=== PATIENT | male | born 1935 | race Caucasian/White ===

== ENCOUNTER 2023-01-27 14:53 | Emergency (ER) | payer MEDICARE, BC ==
[2023-01-27] MEDS ORDERED: Acetaminophen/HYDROcodone 325-10 MG Tab PO ONE (14:54)
[2023-01-27] MEDS ORDERED: Iopamidol 612 MG/ML 100 ML Bottle IVPUSH ONE (14:58)
[2023-01-27 15:29] LABS: PTT,PARTIAL THROMBOPLSTIN TIME 28.1 SEC (22.0-34.0)
[2023-01-27 15:34] LABS: ANION GAP 10.2 mEq/L (7-13); CHLORIDE,CL 104 mmol/L (98-107); SODIUM,NA 146 mmol/L (136-145)
[2023-01-27 15:36] LABS: ESTIMATED GFR 55 mL/min (>=60)
[2023-01-27 16:05] LABS: AMPHETAMINES,URINE NEGATIVE (NEGATIVE); BARBITURATES,URINE NEGATIVE (NEGATIVE); BENZODIAZEPINE,URINE NEGATIVE (NEGATIVE); MDMA (ECSTASY), URINE NEGATIVE (NEGATIVE); METHADONE,URINE NEGATIVE (NEGATIVE); METHAMPHETAMINES,URINE NEGATIVE (NEGATIVE); OPIATES,URINE NEGATIVE (NEGATIVE); OXYCODONE,URINE NEGATIVE (NEGATIVE); PHENCYCLIDINE,URINE NEGATIVE (NEGATIVE); TCA,URINE NEGATIVE (NEGATIVE)
[2023-01-27] MEDS ORDERED: Acetaminophen/HYDROcodone 325-10 MG Tab ONE (16:19)
== END 2023-01-27 16:41 | disposition home or self-care (01) ==
LOC: DL.ED 14:53
DX: S22.32XA Fracture of one rib, left side, initial encounter for closed fracture (principal); J90 Pleural effusion, not elsewhere classified; E78.00 Pure hypercholesterolemia, unspecified; I10 Essential (primary) hypertension; E11.9 Type 2 diabetes mellitus without complications; E66.9 Obesity, unspecified; Z68.30 Body mass index [BMI] 30.0-30.9, adult; Z79.84 Long term (current) use of oral hypoglycemic drugs; Z79.899 Other long term (current) drug therapy; W17.89XA Other fall from one level to another, initial encounter; Z79.01 Long term (current) use of anticoagulants
CPT/HCPCS: 36415; 70450; 71260; 72125; 74177; 80053; 80305-QW; 80307; 81003; 82150; 83690; 83880; 84484; 85025; 85610; 85730; 93005; 93010; 94010; 99284; 99285; A9270-GY; Q9967

== ENCOUNTER 2023-09-10 10:30 | Emergency (ER) | payer MEDICARE, BC ==
[2023-09-10 12:36] LABS: BASOPHILS PERCENT AUTO 0.1 % (0.0-1.0); EOSINOPHILS PERCENT AUTO 1.3 % (1.0-3.0); HEMATOCRIT 43.7 % (40.0-54.0); LYMPHOCYTES PERCENT AUTO 33.6 % (20.5-50.1); MEAN CORPUSCULAR HEMOGLOBIN 28.9 pg (27.0-34.0); MEAN CORPUSCULAR VOLUME 90.1 fL (80-100); MONOCYTES PERCENT AUTO 6.8 % (2-8); NEUTROPHILS PERCENT AUTO 58.2 % (42.2-75.2); PLATELET COUNT,PLT 182 10^3/uL (150-450); RED BLOOD CELL COUNT 4.85 10^6/uL (4.6-6.2); WHITE BLOOD CELL COUNT,WBC 7.7 10^3/uL (5.0-10.0)
[2023-09-10 12:57] LABS: B-TYPE NATRIURETIC PEPTIDE,BNP 197 pg/ml (0-100); C-REACTIVE PROTEIN < 0.50 ng/dL (<=0.50)
== END 2023-09-10 13:36 | disposition home or self-care (01) ==
LOC: DL.ED 10:30
DX: M17.12 Unilateral primary osteoarthritis, left knee (principal); R53.1 Weakness; I10 Essential (primary) hypertension; I48.91 Unspecified atrial fibrillation; E78.00 Pure hypercholesterolemia, unspecified; E11.9 Type 2 diabetes mellitus without complications; F17.210 Nicotine dependence, cigarettes, uncomplicated; E66.9 Obesity, unspecified; Z68.33 Body mass index [BMI] 33.0-33.9, adult; Z79.899 Other long term (current) drug therapy; Z79.84 Long term (current) use of oral hypoglycemic drugs; W18.30XA Fall on same level, unspecified, initial encounter
CPT/HCPCS: 36415; 73562-LT; 83605; 83880; 85025; 85651; 86140; 99284

== ENCOUNTER 2024-04-12 15:12 | Emergency (ER) | payer MEDICARE, BC | END 2024-04-12 18:00 | disposition home or self-care (01) | LOC: DL.ED 15:12 | DX: S61.412A Laceration without foreign body of left hand, initial encounter (principal); J02.9 Acute pharyngitis, unspecified; M25.562 Pain in left knee; I10 Essential (primary) hypertension; E78.00 Pure hypercholesterolemia, unspecified; I48.91 Unspecified atrial fibrillation; E11.9 Type 2 diabetes mellitus without complications; Z79.84 Long term (current) use of oral hypoglycemic drugs; Z79.899 Other long term (current) drug therapy; W19.XXXA Unspecified fall, initial encounter; Y93.89 Activity, other specified | CPT/HCPCS: 87081; 87430; 99283 ==

== ENCOUNTER 2024-04-13 17:38 | Inpatient (IN) | payer MEDICARE, BC ==
[2024-04-13] MEDS: Sodium Chloride 0.9% 10 ML Syringe FLUSH PRN (19:08)
[2024-04-13 19:12] LABS: BASOPHILS PERCENT AUTO 0.1 % (0.0-1.0); EOSINOPHILS PERCENT AUTO 0.2 % (1.0-3.0); HEMATOCRIT 45.6 % (40.0-54.0); HEMOGLOBIN 14.9 g/dL (14.0-18.0); LYMPHOCYTES PERCENT AUTO 12.7 % (20.5-50.1); MEAN CORPUSCULAR HEMOGLOBIN 29.4 pg (27.0-34.0); MEAN CORPUSCULAR HGB CONC 32.7 g/dL (33.0-35.0); MEAN CORPUSCULAR VOLUME 89.9 fL (80-100); MONOCYTES PERCENT AUTO 6.5 % (2-8); NEUTROPHILS PERCENT AUTO 80.5 % (42.2-75.2); PLATELET COUNT,PLT 178 10^3/uL (150-450); RED BLOOD CELL COUNT 5.07 10^6/uL (4.6-6.2); WHITE BLOOD CELL COUNT,WBC 19.4 10^3/uL (5.0-10.0)
[2024-04-13 19:33] LABS: ALANINE AMINOTRANSFERASE,ALT 46 U/L (16-63); ALBUMIN 3.5 g/dL (3.4-5.0); ALKALINE PHOSPHATASE 112 U/L (46-116); ANION GAP 13.1 mEq/L (7-13); ASPARTATE AMNIOTRANSFERASE,AST 24 U/L (15-37); BILIRUBIN TOTAL 2.5 mg/dL (0.2-1.0); BLOOD UREA NITROGEN,BUN 24 mg/dL (7-18); BUN/CREATININE RATIO 15.9 (No establ ref range); CALCIUM 9.6 mg/dL (8.5-10.1); CARBON DIOXIDE,CO2 30 mmol/L (21-32); CHLORIDE,CL 102 mmol/L (98-107); CREATININE 1.51 mg/dL (0.70-1.30); GLUCOSE RANDOM 207 mg/dL (70-99); MAGNESIUM 1.7 mg/dL (1.8-2.4); POTASSIUM,K 4.1 mmol/L (3.5-5.1); SODIUM,NA 141 mmol/L (136-145)
[2024-04-13 19:35] LABS: B-TYPE NATRIURETIC PEPTIDE,BNP 406 pg/ml (0-100)
[2024-04-13 19:37] LABS: ESTIMATED GFR 44 mL/min (>=60)
[2024-04-13 19:38] LABS: INR 1.2 (0.9-1.2); PROTHROMBIN TIME 12.3 SEC (9.0-12.0); PTT,PARTIAL THROMBOPLSTIN TIME 28.1 SEC (22.0-34.0)
[2024-04-13 20:04] LABS: APPEARANCE,URINE SLIGHTLY CLOUDY (CLEAR); BILIRUBIN,URINE NEGATIVE (NEGATIVE); COLOR,URINE DARK YELLOW (YELLOW); GLUCOSE,URINE NEGATIVE (NEGATIVE); KETONES,URINE TRACE (NEGATIVE); LEUKOCYTE ESTERASE,URINE NEGATIVE (NEGATIVE); NITRITE,URINE NEGATIVE (NEGATIVE); OCCULT BLOOD,URINE NEGATIVE (NEGATIVE); PROTEIN,URINE TRACE (NEGATIVE); UROBILINOGEN,URINE 0.2 mg/dL (0.2-1.0)
[2024-04-13 20:15] LABS: BACTERIA,URINE FEW /HPF (0-FEW/HPF); EPITHELIAL CELLS,URINE FEW /HPF (NOT SEEN); RBC,URINE 0-5 /HPF (0-5)
[2024-04-13 20:16] LABS: HYALINE CASTS,URINE FEW; MUCUS,URINE MANY /LPF (NOT SEEN)
[2024-04-13 20:17] LABS: AMORPHOUS SEDIMENT,URINE FEW /HPF (NOT SEEN)
[2024-04-13] MEDS: cefTRIAXone 1 GM Vial IVPUSH ONE (20:26)
[2024-04-13] MEDS: Sodium Chloride 0.9% 500 ML IV SCH (20:27)
[2024-04-13] MEDS: Azithromycin 500 MG in Sodium Chloride 0.9% 250 ML IV ONE (20:35)
[2024-04-13] MEDS ORDERED: hydrALAZINE 20 MG/ML SDV IVPUSH PRN (21:33)
[2024-04-13] MEDS ORDERED: Metoprolol Tartrate 5 MG/5 ML SDV IVPUSH PRN (21:33)
[2024-04-13] MEDS ORDERED: Naloxone 2 MG/2 ML Syringe IVPUSH PRN (21:34)
[2024-04-13] MEDS ORDERED: Albuterol/Ipratropium 3.0-0.5 MG/3 ML Neb Soln NEB PRN (21:34)
[2024-04-13] MEDS ORDERED: Magnesium Hydroxide 400 MG/5 ML Susp 30 ML Cup PO PRN (21:34)
[2024-04-13] MEDS ORDERED: Ondansetron 4 MG/2 ML SDV IVPUSH PRN (21:34)
[2024-04-13] MEDS ORDERED: Acetaminophen/HYDROcodone 325-5 MG Tab PO PRN (21:34)
[2024-04-13] MEDS ORDERED: Acetaminophen 325 MG Tab PO PRN (21:34)
[2024-04-13] MEDS ORDERED: Sennosides/Docusate Sodium 50-8.6 MG Tab PO PRN (21:34)
[2024-04-13] MEDS ORDERED: HYDROmorphone 0.5 MG/0.5 ML Syringe IVPUSH PRN (21:34)
[2024-04-13] MEDS ORDERED: Polyethylene Glycol 3350 Powder 17 GM Packet PO PRN (21:34)
[2024-04-13] MEDS ORDERED: Benzocaine/Cetylpyridinium/Menthol Lozenge MUCMEM PRN (21:38)
[2024-04-13] MEDS ORDERED: Glucagon,Human Recombinant 1 MG Vial IM PRN (21:40)
[2024-04-13] MEDS ORDERED: 50% Dextrose in Water 50 ML Syringe IVPUSH PRN (21:40)
[2024-04-13] MEDS ORDERED: Diclofenac Sodium 1% Gel 100 GM Tube TOP PRN (21:45)
[2024-04-13 21:52] LABS: C-REACTIVE PROTEIN 12.82 ng/dL (<=0.50)
[2024-04-13] MEDS: Brimonidine 0.2% Ophth Soln 5 ML Bottle EYEBOTH SCH (22:47)
[2024-04-13] MEDS: Dexamethasone 4 MG/ML SDV IVPUSH ONE (23:50)
[2024-04-14 06:36] LABS: BASOPHILS PERCENT AUTO 0.1 % (0.0-1.0); HEMATOCRIT 44.4 % (40.0-54.0); HEMOGLOBIN 14.2 g/dL (14.0-18.0); LYMPHOCYTES PERCENT AUTO 13.5 % (20.5-50.1); MEAN CORPUSCULAR HEMOGLOBIN 29.2 pg (27.0-34.0); MEAN CORPUSCULAR VOLUME 91.2 fL (80-100); MONOCYTES PERCENT AUTO 3.9 % (2-8); NEUTROPHILS PERCENT AUTO 82.5 % (42.2-75.2); PLATELET COUNT,PLT 176 10^3/uL (150-450); RED BLOOD CELL COUNT 4.87 10^6/uL (4.6-6.2); WHITE BLOOD CELL COUNT,WBC 14.2 10^3/uL (5.0-10.0)
[2024-04-14 07:02] LABS: ALBUMIN 3.3 g/dL (3.4-5.0); ANION GAP 10.5 mEq/L (7-13); BILIRUBIN TOTAL 1.7 mg/dL (0.2-1.0); BUN/CREATININE RATIO 21.5 (No establ ref range); C-REACTIVE PROTEIN 17.3 ng/dL (<=0.50); CALCIUM 9.7 mg/dL (8.5-10.1); CREATININE 1.21 mg/dL (0.70-1.30); EST CRCL DRUG DOSING (CG) 47.69 mL/min; MAGNESIUM 1.8 mg/dL (1.8-2.4); POTASSIUM,K 4.5 mmol/L (3.5-5.1); PROTEIN TOTAL,TP 6.8 g/dL (6.4-8.2)
[2024-04-14 07:03] LABS: A/G RATIO 0.94
[2024-04-14] MEDS ORDERED: Non-Formulary Medication 1 Each (Rivaroxaban [Xarelto] 20 MG Tablet) PO SCH (09:00)
[2024-04-14] MEDS: Rivaroxaban 10 MG Tab PO SCH (10:16)
[2024-04-14] MEDS: Sotalol 80 MG Tab PO SCH (10:17)
[2024-04-14] MEDS: Saccharomyces Boulardii (Probiotic) 250 MG Cap PO SCH (10:17)
[2024-04-14] MEDS: Dexamethasone 6 MG TABLET PO SCH (10:18)
[2024-04-14] MEDS: guaiFENesin 600 MG Tab.ER PO SCH (10:18)
[2024-04-14] MEDS: Insulin Lispro 100 Units/ML 3 ML Vial SUBCUT SCH (10:18)
[2024-04-14] MEDS: Arformoterol 15 MCG/2 ML Neb Soln NEB SCH (10:19)
[2024-04-14] MEDS: Timolol Maleate 0.5% Ophth Soln 5 ML Bottle EYEBOTH SCH (10:19)
[2024-04-14] MEDS: Budesonide 0.5 MG/2 ML Neb Susp INH SCH (10:19)
[2024-04-14] MEDS: Bacitracin/Neomycin/Polymyxin B Oint 28.4 GM Tube TOP SCH (18:11)
[2024-04-14] MEDS: Azithromycin 500 MG in Sodium Chloride 0.9% 250 ML IV SCH (18:13)
[2024-04-14] MEDS: cefTRIAXone 1 GM Vial IVPUSH SCH (18:14)
[2024-04-14] MEDS: Latanoprost 0.005% Ophth Soln 2.5 ML Bottle EYEBOTH SCH (20:45)
[2024-04-14] MEDS: Melatonin 3 MG Tab PO PRN (20:45)
[2024-04-15] MEDS: Budesonide 0.5 MG/2 ML Neb Susp INH SCH ×2 (06:15→18:30)
[2024-04-15] MEDS: Arformoterol 15 MCG/2 ML Neb Soln NEB SCH ×2 (06:15→18:30)
[2024-04-15 06:22] LABS: BASOPHILS PERCENT AUTO 0.1 % (0.0-1.0); EOSINOPHILS PERCENT AUTO 0.2 % (1.0-3.0); HEMATOCRIT 44.2 % (40.0-54.0); HEMOGLOBIN 13.9 g/dL (14.0-18.0); LYMPHOCYTES PERCENT AUTO 19.6 % (20.5-50.1); MEAN CORPUSCULAR HEMOGLOBIN 29.2 pg (27.0-34.0); MEAN CORPUSCULAR HGB CONC 31.4 g/dL (33.0-35.0); MEAN CORPUSCULAR VOLUME 92.9 fL (80-100); MONOCYTES PERCENT AUTO 6.1 % (2-8); PLATELET COUNT,PLT 192 10^3/uL (150-450); RED BLOOD CELL COUNT 4.76 10^6/uL (4.6-6.2); WHITE BLOOD CELL COUNT,WBC 13.1 10^3/uL (5.0-10.0)
[2024-04-15 06:46] LABS: ALBUMIN 3.2 g/dL (3.4-5.0); ANION GAP 9.7 mEq/L (7-13); BILIRUBIN TOTAL 0.9 mg/dL (0.2-1.0); BUN/CREATININE RATIO 30.3 (No establ ref range); C-REACTIVE PROTEIN 9.17 ng/dL (<=0.50); CALCIUM 9.9 mg/dL (8.5-10.1); CREATININE 1.09 mg/dL (0.70-1.30); EST CRCL DRUG DOSING (CG) 52.94 mL/min; POTASSIUM,K 5.7 mmol/L (3.5-5.1)
[2024-04-15 06:47] LABS: A/G RATIO 0.84
[2024-04-16 06:27] LABS: BASOPHILS PERCENT AUTO 0.2 % (0.0-1.0); EOSINOPHILS PERCENT AUTO 0.2 % (1.0-3.0); HEMATOCRIT 42.8 % (40.0-54.0); HEMOGLOBIN 13.4 g/dL (14.0-18.0); MEAN CORPUSCULAR HGB CONC 31.3 g/dL (33.0-35.0); MEAN CORPUSCULAR VOLUME 92.6 fL (80-100); MONOCYTES PERCENT AUTO 6.2 % (2-8); NEUTROPHILS PERCENT AUTO 72.4 % (42.2-75.2); PLATELET COUNT,PLT 205 10^3/uL (150-450); RED BLOOD CELL COUNT 4.62 10^6/uL (4.6-6.2); WHITE BLOOD CELL COUNT,WBC 12.1 10^3/uL (5.0-10.0)
[2024-04-16] MEDS: Arformoterol 15 MCG/2 ML Neb Soln NEB SCH (06:43)
[2024-04-16] MEDS: Budesonide 0.5 MG/2 ML Neb Susp INH SCH (06:44)
[2024-04-16 06:47] LABS: ALBUMIN 3.2 g/dL (3.4-5.0); ANION GAP 8.8 mEq/L (7-13); BILIRUBIN TOTAL 0.7 mg/dL (0.2-1.0); BUN/CREATININE RATIO 33.7 (No establ ref range); C-REACTIVE PROTEIN 3.52 ng/dL (<=0.50); CALCIUM 9.5 mg/dL (8.5-10.1); CREATININE 1.01 mg/dL (0.70-1.30); EST CRCL DRUG DOSING (CG) 57.13 mL/min; POTASSIUM,K 4.8 mmol/L (3.5-5.1); PROTEIN TOTAL,TP 6.8 g/dL (6.4-8.2)
[2024-04-16 06:51] LABS: A/G RATIO 0.89
[2024-04-16] MEDS: Rivaroxaban 10 MG Tab PO SCH (09:25)
== END 2024-04-16 13:40 | disposition home or self-care (01) | DRG 193 ==
LOC: DL.ED 17:38 → DL.MS 20:33 → DL.ED 20:50
PROVIDERS: ADMIT Internal Medicine; ATTEND Internal Medicine
DX: J18.9 Pneumonia, unspecified organism (principal); G93.41 Metabolic encephalopathy; I50.33 Acute on chronic diastolic (congestive) heart failure; J96.21 Acute and chronic respiratory failure with hypoxia; I13.0 Hypertensive heart and chronic kidney disease with heart failure and stage 1 through stage 4 chronic kidney disease, or unspecified chronic kidney disease; N17.9 Acute kidney failure, unspecified; J44.0 Chronic obstructive pulmonary disease with (acute) lower respiratory infection; H91.90 Unspecified hearing loss, unspecified ear; H54.7 Unspecified visual loss; I48.91 Unspecified atrial fibrillation; E78.00 Pure hypercholesterolemia, unspecified; I27.20 Pulmonary hypertension, unspecified; N40.0 Benign prostatic hyperplasia without lower urinary tract symptoms; E11.22 Type 2 diabetes mellitus with diabetic chronic kidney disease; N18.31 Chronic kidney disease, stage 3a; F03.90 Unspecified dementia, unspecified severity, without behavioral disturbance, psychotic disturbance, mood disturbance, and anxiety; G47.33 Obstructive sleep apnea (adult) (pediatric); Z66 Do not resuscitate; E11.42 Type 2 diabetes mellitus with diabetic polyneuropathy; E66.01 Morbid (severe) obesity due to excess calories; G25.81 Restless legs syndrome; E11.65 Type 2 diabetes mellitus with hyperglycemia; E83.42 Hypomagnesemia; E80.6 Other disorders of bilirubin metabolism; D72.829 Elevated white blood cell count, unspecified; M11.262 Other chondrocalcinosis, left knee; M17.0 Bilateral primary osteoarthritis of knee; Z79.84 Long term (current) use of oral hypoglycemic drugs; Z79.01 Long term (current) use of anticoagulants; Z79.899 Other long term (current) drug therapy; Z87.19 Personal history of other diseases of the digestive system; Z68.33 Body mass index [BMI] 33.0-33.9, adult; Z98.49 Cataract extraction status, unspecified eye; Z98.890 Other specified postprocedural states; Z90.49 Acquired absence of other specified parts of digestive tract; Z99.81 Dependence on supplemental oxygen
CPT/HCPCS: 36415; 71046; 80053; 81001; 83605; 83735; 83880; 84145; 85025; 85610; 85730; 86140; 96374; 99285 ×2; C1758; J0456; J0696; J7040; J7050; 70450; 73560-LT; 82947; 87804; 94010; 94640; 94664; 94667; 94760; 97110-GP; 97161-GP; 97165-GO; 97530-GO; 97530-GP; A9270-GY; J1100; J1815-GY; J3490; J8540; U0002

== ENCOUNTER 2025-02-09 09:04 | Inpatient (IN) | payer MEDICARE, BC ==
[2025-02-09] MEDS ORDERED: Naloxone 2 MG/2 ML Syringe IVPUSH PRN (09:42)
[2025-02-09] MEDS ORDERED: Magnesium Hydroxide 400 MG/5 ML Susp 30 ML Cup PO PRN (09:42)
[2025-02-09] MEDS ORDERED: Sodium Chloride 0.9% 10 ML Syringe FLUSH PRN ×2 (09:42)
[2025-02-09] MEDS ORDERED: HYDROmorphone 0.5 MG/0.5 ML Syringe IVPUSH PRN (09:42)
[2025-02-09] MEDS ORDERED: Diclofenac Sodium 1% Gel 100 GM Tube TOP PRN (09:42)
[2025-02-09] MEDS ORDERED: Metoprolol Tartrate 5 MG/5 ML SDV IVPUSH PRN (09:42)
[2025-02-09] MEDS ORDERED: 50% Dextrose in Water 50 ML Syringe IVPUSH PRN (09:42)
[2025-02-09] MEDS ORDERED: Ondansetron 4 MG/2 ML SDV IVPUSH PRN (09:42)
[2025-02-09] MEDS ORDERED: Albuterol/Ipratropium 3.0-0.5 MG/3 ML Neb Soln NEB PRN (09:42)
[2025-02-09] MEDS ORDERED: Polyethylene Glycol 3350 Powder 17 GM Packet PO PRN (09:42)
[2025-02-09] MEDS ORDERED: Glucagon,Human Recombinant 1 MG Vial IM PRN ×2 (09:42)
[2025-02-09] MEDS ORDERED: Melatonin 3 MG Tab PO PRN (09:42)
[2025-02-09] MEDS: Brimonidine 0.2% Ophth Soln 5 ML Bottle EYEBOTH SCH (12:51)
[2025-02-09] MEDS: Insulin Lispro 100 Units/ML 3 ML Vial SUBCUT SCH (12:52)
[2025-02-09] MEDS: Ampicillin/Sulbactam Na 1.5 GM in Sodium Chloride 0.9% 100 ML IV SCH (16:08)
[2025-02-09] MEDS: Budesonide 0.5 MG/2 ML Neb Susp INH SCH (20:22)
[2025-02-09] MEDS ORDERED: Sodium Chloride 0.9% 10 ML Syringe FLUSH SCH (21:00)
[2025-02-09] MEDS: Acetaminophen 325 MG Tab PO PRN (22:09)
[2025-02-09] MEDS: Multivitamins with Iron/Calcium/Folic Acid/Minerals Tab PO SCH (22:10)
[2025-02-09] MEDS: Lutein/Minerals/Vit A,C & E Tab PO SCH (22:10)
[2025-02-09] MEDS: Bacitracin/Neomycin/Polymyxin B Oint 28.4 GM Tube TOP SCH (22:10)
[2025-02-09] MEDS: Saccharomyces Boulardii (Probiotic) 250 MG Cap PO SCH (22:10)
[2025-02-09] MEDS: Sennosides/Docusate Sodium 50-8.6 MG Tab PO PRN (22:10)
[2025-02-09] MEDS: Sodium Chloride 0.9% 10 ML Syringe FLUSH SCH (22:11)
[2025-02-09] MEDS: Doxycycline 100 MG in Sodium Chloride 0.9% 100 ML IV SCH (22:11)
[2025-02-09] MEDS: Latanoprost 0.005% Ophth Soln 2.5 ML Bottle EYEBOTH SCH (22:11)
[2025-02-10] MEDS: Rivaroxaban 10 MG Tab PO SCH (09:00)
[2025-02-10] MEDS: Vitamin E (dl-alpha-tocopherol acetate) 400 Unit Cap PO SCH (09:00)
[2025-02-10] MEDS: Empagliflozin 10 MG Tab PO SCH (09:00)
[2025-02-10] MEDS: Losartan 50 MG Tab PO SCH (09:01)
[2025-02-10] MEDS: DULoxetine 30 MG Cap PO SCH (09:01)
[2025-02-10] MEDS: Cholecalciferol (Vitamin D3) 25 MCG Tab PO SCH (09:01)
[2025-02-10] MEDS: Sotalol 80 MG Tab PO SCH (09:02)
[2025-02-10] MEDS: Timolol Maleate 0.5% Ophth Soln 5 ML Bottle EYEBOTH SCH (09:10)
[2025-02-10] MEDS: Bisacodyl 5 MG Tab PO PRN (21:19)
[2025-02-13] MEDS: Bumetanide 1 MG Tab PO ONE (17:29)
[2025-02-14] MEDS: Bumetanide 1 MG Tab PO SCH (16:54)
[2025-02-14] MEDS ORDERED: [UNRECOGNIZED DRUG - OTHER] TOP PRN (19:08)
[2025-02-14] MEDS ORDERED: AQUAPHOR TOP SCH (21:00)
[2025-02-14] MEDS: Bumetanide 1 MG/4 ML MDV IVPUSH ONE (21:58)
[2025-02-15] MEDS: Arformoterol 15 MCG/2 ML Neb Soln INH SCH (19:43)
[2025-02-16] MEDS ORDERED: Arformoterol 15 MCG/2 ML Neb Soln INH SCH (18:00)
== END 2025-02-16 11:10 | disposition home or self-care (01) | DRG 638 ==
LOC: DL.MS 10:41
PROVIDERS: ADMIT Internal Medicine; ATTEND Internal Medicine
DX: E11.628 Type 2 diabetes mellitus with other skin complications (principal); L03.116 Cellulitis of left lower limb; R53.1 Weakness; Z66 Do not resuscitate; Z68.32 Body mass index [BMI] 32.0-32.9, adult; H54.7 Unspecified visual loss; H91.90 Unspecified hearing loss, unspecified ear; E11.42 Type 2 diabetes mellitus with diabetic polyneuropathy; I48.91 Unspecified atrial fibrillation; G47.33 Obstructive sleep apnea (adult) (pediatric); M19.90 Unspecified osteoarthritis, unspecified site; E78.00 Pure hypercholesterolemia, unspecified; I27.20 Pulmonary hypertension, unspecified; J44.9 Chronic obstructive pulmonary disease, unspecified; E66.811 Obesity, class 1; E11.65 Type 2 diabetes mellitus with hyperglycemia; E11.22 Type 2 diabetes mellitus with diabetic chronic kidney disease; N40.0 Benign prostatic hyperplasia without lower urinary tract symptoms; N18.9 Chronic kidney disease, unspecified; I12.9 Hypertensive chronic kidney disease with stage 1 through stage 4 chronic kidney disease, or unspecified chronic kidney disease; Z79.84 Long term (current) use of oral hypoglycemic drugs; Z79.899 Other long term (current) drug therapy; Z98.49 Cataract extraction status, unspecified eye; Z79.01 Long term (current) use of anticoagulants; Z85.828 Personal history of other malignant neoplasm of skin; Z98.890 Other specified postprocedural states; Z90.49 Acquired absence of other specified parts of digestive tract
CPT/HCPCS: 82947; 94640; 97110-GP; 97161-GP; 97165-GO; 97530-GP; 99305; 99315; A9270-GY; J0295; J1815-GY; J3490